=== PATIENT | male | born 1965 | race Two or more races ===

== ENCOUNTER 2019-09-27 22:13 | Emergency (ER) | payer BC, OTHER ==
[~2019-09-27] VITALS: Ht 180.3 cm; Wt 108.9 kg
--- NOTE | 2019-09-27 22:16 | NUR ---
BIBRA 860 FROM HOME FOR NOSE BLEED X 30 MIN SKIVER HAND. PT A, OX3, AMBULATORY TO BED 1. WAS PLACED ON A MONITOR.
[2019-09-27] MEDS ORDERED: OXYMETAZOLINE HCL NASAL SPRAY 30 ML BOTTLE NS ONE (22:23)
[2019-09-27] MEDS: OXYMETAZOLINE HCL NASAL SPRAY 30 ML BOTTLE NS ONE (22:26)
--- NOTE | 2019-09-27 22:40 | NUR ---
DR TINSLEY AT THE BED SIDE. PT IS SITTING AT THE EDGE OF THE BED . STILL NOTED W/ ONGOING NOSE BLEED
[2019-09-27] MEDS ORDERED: TRANEXAMIC ACID 1,000 MG/10 ML VIAL ONE (22:43)
[2019-09-27] MEDS: TRANEXAMIC ACID 1,500 MG in IV NS 0.9% 50 ML IV ONE (22:57)
--- NOTE | 2019-09-27 22:57 | NUR ---
TXA GIVEN BY
--- NOTE | 2019-09-27 22:59 | NUR ---
TRANEXAMIC ACID WAS ADMINISTERED BY DR TINSLEY AND PA AT THE BED SIDE. PT TOLERATED THE PROCEDURE WELL. WILL CONT TO MONITOR
--- NOTE | 2019-09-27 23:12 | NUR ---
DR TINSLEY AT THE BED SIDE FOR RE EVAL
--- NOTE | 2019-09-28 00:07 | NUR ---
RICHA FOR PICKUP
--- NOTE | 2019-09-28 02:38 | NUR ---
PT MEDICALLY STABLE FOR D/C HOME. NO MORE NOSE BLEED NOTED. VSS. Patient discharged to home in stable condition. Rx AND Written and verbal after care instructions given. Patient verbalizes understanding of instruction.
[2019-09-28 02:50] VITALS: BP 127/84
== END 2019-09-28 02:50 | disposition home or self-care (01) ==
LOC: ER 22:15
DX: R04.0 Epistaxis (principal); I10 Essential (primary) hypertension; E78.5 Hyperlipidemia, unspecified; Z98.890 Other specified postprocedural states; Z88.0 Allergy status to penicillin; Z88.2 Allergy status to sulfonamides
CPT/HCPCS: 30901; 99284; A4216